=== PATIENT | female | born 1990 | race Caucasian/White ===

== ENCOUNTER 2021-10-07 13:50 | Outpatient (CLI) | payer BC ==
[2021-10-07 20:46] LABS: RHEUMATOID FACTOR NEGATIVE (Negative)
[2021-10-11 16:08] LABS: ANTI-DNA (DS) AB QN 27 IU/mL (0-9); CENTROMERE B ANTIBODIES 2.4 AI (0.0-0.9); CHROMATIN ANTIBODIES <0.2 AI (0.0-0.9); JO-1 AB <0.2 AI (0.0-0.9); RIBOSOMAL P ANTIBODIES <0.2 AI (0.0-0.9); RNP ANTIBODIES <0.2 AI (0.0-0.9); SCLERODERMA-70 ANTIBODIES <0.2 AI (0.0-0.9); SJOGREN'S ANTI-SS-A <0.2 AI (0.0-0.9); SJOGREN'S ANTI-SS-B <0.2 AI (0.0-0.9); SMITH ANTIBODIES <0.2 AI (0.0-0.9); SMITH/RNP ANTIBODIES <0.2 AI (0.0-0.9)
[2021-10-11 19:06] LABS: CYCLIC CITRULLINATED PEP IGG/A 4 units (0-19)
== END 2021-10-07 13:51 | disposition home or self-care (01) ==
LOC: LAB.S 13:50
PROVIDERS: ATTEND Family Medicine
DX: M35.3 Polymyalgia rheumatica (principal); M79.2 Neuralgia and neuritis, unspecified
CPT/HCPCS: 36415; 85651; 86140; 86200; 86225; 86235; 86430

== ENCOUNTER 2022-06-17 15:51 | Emergency (ER) | payer BC ==
--- NOTE | 2022-06-17 16:23 | ED Physician Documentation ---
History of Present Illness - Stated complaint Stated Complaint: LEG/ARM WEAKNESS,MIGRAINE - Chief complaint Chief Complaint: Neuro - Additonal information Additional information: 31-year-old female presents to the emergency department for evaluation of headache, brief period of aphasia, and generalized weakness in her arms and legs. Patient has a history of migraines and gets them typically every week. 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 She did wake up with a stabbing headache about 12 AM. As the headache worsened she reported that she had difficulty speaking. For a brief period of time she could not form any words. She also states that she had difficulty moving both her upper and lower extremities. With time this however has gotten better. However she states that due to a hx of PTSD and recurrent headaches and neurological symptoms she was started on Buspar this fall. Over time it has been up-titrates now to 15 mg BID. thsi changewas made last week. She is uncertain if today's symptoms reflect the change in medication Patient has a history of ovarian cancer. She is status post right oophorectomy and partial left oophorectomy. She is on both estrogen and progesterone hormone replacement. Reportedly was in early menopause last year. rarely has periods States that she had an MRI of her brain about a year ago. She was able to contact her neurologist this afternoon who advised her to come to the ER for further evaluation as they were concerned that the symptoms could be TIA like. At this time of evaluation in the ER her NIHSS is 0 and she reports that most of the headache as well as her symptoms have resolved. History is provided by patient. Sang historian. Review of Systems Constitutional: denies: Fever, Chills Eyes: denies: Loss of vision (No double vision) Cardiac: reports: Reviewed and negative Respiratory: reports: Reviewed and negative GI: reports: Reviewed and negative : reports: Reviewed and negative Skin: reports: Reviewed and negative Neurologic: reports: Difficulty speaking, Headache Psychiatric: reports: Reviewed and negative PD PAST MEDICAL HISTORY - Allergies Allergies/Adverse Reactions: Allergies Allergy/AdvReac Type Severity Reaction Status Date / Time propranolol AdvReac Dizziness Verified 06/17/22 16:05 sulfamethoxazole AdvReac Unknown Verified 06/17/22 16:05 [From Bactrim] trimethoprim [From Bactrim] AdvReac Unknown Verified 06/17/22 16:05 PD ED PE NORMAL - General General: Alert and oriented X 3, No acute distress - HEENT HEENT: Atraumatic, Moist mucous membranes - Neck Neck: Supple, no meningeal sign, No adenopathy - Cardiac Cardiac: RRR, No murmur - Respiratory Respiratory: No respiratory distress, Clear bilaterally - Back Back: No CVA TTP, No spinal TTP - Derm Derm: Normal color, Warm and dry - Extremities Extremities: No deformity, No tenderness to palpate, Normal ROM s pain - Neuro Neuro: Alert and oriented X 3, clinical social work therapist 2-12 intact, No motor deficit, No sensory deficit, Normal speech, Other (NIHSS of 0. Normal speech. Normal finger nose, normal gait, normal heel toe, normal rapid alternating movements) Eye Opening: Spontaneous Motor: Obeys Commands Verbal: Oriented GCS Score: 15 Results - Vitals Vitals: Vital Signs - 24 hr 06/17/22 06/17/22 15:55 18:02 Temperature 37.1 C Heart Rate 95 95 Respiratory 20 18 Rate Blood Pressure 112/76 115/74 O2 Saturation 96 100 Oxygen O2 Source Room air - Labs Labs: Laboratory Tests 06/17/22 06/17/22 06/17/22 16:30 16:40 16:41 WBC 6.8 RBC 4.51 Hgb 14.2 Hct 42.4 MCV 94.0 MCH 31.5 H MCHC 33.5 RDW 11.5 L Plt Count 274 MPV 10.3 Neut # (Auto) 4.5 Lymph # (Auto) 1.6 [place] # (Auto) 0.5 Eos # (Auto) 0.1 Baso # (Auto) 0.0 Absolute Nucleated RBC 0.00 Nucleated RBC % 0.0 Sodium 136 Potassium 4.1 Chloride 103 Carbon Dioxide 21 Anion Gap 12.0 BUN 13 Creatinine 0.6 Estimated GFR (MDRD) 115 Glucose 93 Calcium 9.7 Total Bilirubin 1.0 AST 18 ALT 12 Alkaline Phosphatase 39 L Total Protein 7.8 Albumin 4.8 Globulin 3.0 Albumin/Globulin Ratio 1.6 Lipase 36 Urine HCG, Qual NEGATIVE - Rads (name of study) Angio head Radiology: Final report received (Normal CT brain without contrast. Normal CT angiogram of the brain with contrast.) PD Medical Decision Making - ED course Complexity details: reviewed results, re-evaluated patient, considered differential, d/w patient, d/w family ED course: 31-year-old female presents to the emergency department for evaluation of a headache with associated neurological symptoms that included difficulty speaking this morning and a heaviness in both her upper and lower extremities. History includes known migraines that have been described as complex as well as hemiplegic in the past. Patient does have a history of ovarian cancer for which she is now in early menopause and is on hormone replacement. Patient had spoken with her doctors who advised her to come to the ER for a TIA evaluation. On presentation to the ER the patient's neurological symptoms had abated. She had fluid speech with no focal deficits. She had a normal neurological and cerebellar exam. NIHSS was 0. We did obtain a CBC and electrolytes with no acute worrisome findings noted. She is not . I discussed with the patient that my differential for her symptoms included most likely a complex migraine. History is not consistent with infectious etiology. However as a patient had spoken with her primary doctors there was concern she could have a TIA. As such we did perform a CT angio of the head which showed no findings to suggest aneurysm kind dissection or thrombus formation. The CT of the brain was also without acute findings to suggest infarction. The patient had reported bilateral upper extremity arm weakness as well as bilateral lower extremity weakness. This is not consistent with acute infarction or TIA On reevaluation the patient is feeling markedly better and is free of headache at this time. There are no focal deficits noted. The patient is concerned that the recent increase in her BuSpar could be causative of her symptoms. Since she recently increased the dose to 15 she has asked if she may reduce it back to 10 mg twice daily which I think is reasonable as she reported good symptom control of her PTSD and headaches with this dose. At this time clinically I do not suspect the patient of having a CVA or TIA. I suspect she had a complex migraine. She is discharged home in stable condition. The usual emergent return precautions were discussed Departure - Departure Disposition: 01 Home, Self Care Clinical Impression: Migraine Qualifiers: Migraine type: other Status migrainosus presence: without status migrainosus Intractability: not intractable Qualified Code(s): G43.809 - Other migraine, not intractable, without status migrainosus Condition: Stable Record reviewed to determine appropriate education?: Yes Comments: You came to the emergency department this afternoon because you developed a headache last night and today you have had some symptoms that have included a heaviness in your arms and legs, difficulty speaking. You do have a history of complex migraines as well as hemiplegic migraines. You also reported a history of ovarian cancer for which are now in early menopause and are on hormone replacement therapy. By the time he came to the emergency department your symptoms had resolved and your neurological and cerebellar exam was normal. You had spoken with your doctors and they were concerned you could be having a TIA. Here in the emergency department we did obtain CBC and electrolytes that were entirely unremarkable for age. We did do a CT angiogram of your brain. There are no worrisome findings to suggest thrombus, aneurysm or dissection. The CT of your brain is normal and does not show any findings to suggest infarction or CVA. As we discussed at the bedside I suspect the cause of your headache and previous neurological symptoms was most likely a complex migraine that seems to have subsided. I do not believe that you had a TIA. If you have been more comfortable taking 10 mg of BuSpar twice daily you can reduce your dose and resume taking that but do not discontinue it without careful conversation with your providers. If you find that you develop facial droop, have slurred speech or loss of speech, focal weakness in your arms or legs then please return immediately to the ER for a second evaluation.
[2022-06-17] MEDS ORDERED: iohexoL-300 100 ML VIAL ONE (16:24)
[2022-06-17 16:44] LABS: BASOPHILS % (AUTO) 0.4 %; EOSINOPHILS # (AUTO) 0.1 10^3/uL (0.0-0.7); EOSINOPHILS % (AUTO) 1.3 %; HCT - HEMATOCRIT 42.4 % (37.0-47.0); HGB - HEMOGLOBIN 14.2 g/dL (12.0-16.0); LYMPHOCYTES # (AUTO) 1.6 10^3/uL (1.5-3.5); MEAN CORPUSCULAR HEMOGLOBIN 31.5 pg (27.0-31.0); MEAN CORPUSCULAR HGB CONC 33.5 g/dL (32.0-36.0); MEAN PLATELET VOLUME 10.3 fL (7.9-10.8); MONOCYTES # (AUTO) 0.5 10^3/uL (0.0-1.0); MONOCYTES % (AUTO) 7.1 %; NEUTROPHILS # (AUTO) 4.5 10^3/uL (1.5-6.6); NEUTROPHILS % (AUTO) 66.9 %; PLT - PLATELET COUNT 274 10^3/uL (130-450); RED BLOOD COUNT 4.51 10^6/uL (4.20-5.40); RED CELL DISTRIBUTION WIDTH 11.5 % (12.0-15.0); WHITE BLOOD COUNT 6.8 x10^3/uL (4.8-10.8)
[2022-06-17 16:52] LABS: HCG UR QUAL NEGATIVE
[2022-06-17 17:01] LABS: ALBUMIN 4.8 g/dL (3.2-5.5); ALBUMIN/GLOBULIN RATIO 1.6 (1.0-2.2); CALCIUM 9.7 mg/dL (8.5-10.3); CREATININE 0.6 mg/dL (0.4-1.0); POTASSIUM 4.1 mmol/L (3.5-5.0); TOTAL PROTEIN 7.8 g/dL (6.7-8.2)
[2022-06-17] MEDS ORDERED: iohexoL-300 100 ML VIAL IVP ONE (17:33)
--- NOTE | 2022-06-17 17:49 | CT Report ---
PROCEDURE: CT angiogram head with contrast, CT brain without contrast INDICATIONS: aphasia; weakness arms legs CONTRAST: 80ml omni 300 TECHNIQUE: Precontrast 4.5 mm thick angled axial sections acquired from the foramen magnum to the vertex. Afte r the administration of intravenous contrast, 1 mm thick sections acquired through the [place] of [place] is. Postcontrast 4.5 mm thick sections then re-acquired from the foramen magnum to the vertex. maxi icl-qbhlxrnnr-ewyyydkcll (MIP) dwere acquired of the central intracranial vasculature. For radiation dose reduction, the following was used: automated exposure control, adjustment of mA and/or kV acco rding to patient size. COMPARISON: None FINDINGS: Image quality: Excellent. Anterior circulation: Intracranial internal carotid arteries are normal in size and flow. The flow within the paired anterior cerebral arteries is normal and symmetric. The flow within the middle cer ebral arteries is normal and symmetric. The anterior communicating artery is seen. No aneurysms are seen. Posterior circulation: Visualized portions of the vertebral arteries demonstrate normal caliber, and join to form a normal appearing basilar artery. Flow within the posterior cerebral arteries is norm al and symmetric. No aneurysms are seen. CSF spaces: Ventricles are normal in size and shape. Basal cisterns are patent. No extra-axial flu id collections. Brain: No midline shift. No intracranial bleeds or masses. [place]-white matter interface appears int act. Skull and face: Calvarium and facial bones appear intact, without suspicious lesions. Sinuses: Visualized sinuses and mastoids are clear. IMPRESSION: Normal CT brain without contrast Normal CT angiogram of the brain with contrast Reviewed by: Arnel Sánchez MD on 06/17/2022 4:47 PM [facility] Approved by: Arnel Sánchez MD on 06/17/2022 4:47 PM [facility] Station ID: [id number]
[2022-06-17 18:04] VITALS: BP 115/74
== END 2022-06-17 18:19 | disposition home or self-care (01) ==
LOC: ED 15:51
DX: G43.809 Other migraine, not intractable, without status migrainosus (principal)
CPT/HCPCS: 36415; 70496; 80053; 81025; 83690; 85025; 99284; Q9967

== ENCOUNTER 2022-12-06 11:18 | Outpatient (CLI) | payer BC | END 2022-12-06 11:19 | disposition home or self-care (01) | LOC: LAB.S 11:18 | DX: C56.3 Malignant neoplasm of bilateral ovaries (principal) | CPT/HCPCS: 36415; 86304 ==